=== PATIENT | male | born 1940 | race Caucasian/White ===

== ENCOUNTER 2023-12-03 11:56 | Emergency (ER) | payer OTHER ==
[~2023-12-03] VITALS: Ht 175.3 cm; Wt 78.3 kg
[2023-12-03] MEDS ORDERED: HYDR12.55 PO (12:07)
[2023-12-03] MEDS ORDERED: LISI20TA33 PO (12:07)
[2023-12-03] MEDS ORDERED: MIRA3350 PO (14:15)
[2023-12-03 14:38] VITALS: BP 167/85; TEMP 97; O2SAT 96
== END 2023-12-03 14:40 | disposition home or self-care (01) ==
LOC: M ED 11:56
DX: K59.00 Constipation, unspecified (principal); I10 Essential (primary) hypertension; Z79.899 Other long term (current) drug therapy